=== PATIENT | female | born 1985 | race Caucasian/White ===

== ENCOUNTER 2018-07-03 04:00 | Inpatient (IN) | payer BC ==
[~2018-07-03] VITALS: Ht 185.4 cm; Wt 117.9 kg
[2018-07-03] MEDS ORDERED: fentaNYL CITRATE/PF 100 MCG/2 ML AMP ONE (04:37)
[2018-07-03] MEDS ORDERED: ROPIVACAINE 0.2% 100 ML ONE (04:37)
[2018-07-03] MEDS ORDERED: LR 1,000 ML IV ONE (04:48)
[2018-07-03] MEDS ORDERED: CEFAZOLIN 2 GM IVPB PREMIX 50 ML IV ONE (05:00)
[2018-07-03 06:44] LABS: BASOPHILS % (AUTO) 0.2 % (0.0-2.0); EOSINOPHILS # (AUTO) 0.2 K/uL (0.0-0.4); EOSINOPHILS % (AUTO) 1.5 % (0.0-4.0); HEMATOCRIT 35.6 % (36-48); HEMOGLOBIN 11.5 g/dL (12.0-16.0); LYMPHOCYTES # (AUTO) 2.5 K/uL (1.0-5.5); LYMPHOCYTES % (AUTO) 16.8 % (20.5-51.5); MEAN CORPUSCULAR HEMOGLOBIN 28 pg (27-31); MEAN CORPUSCULAR HGB CONC 32 % (32-36); MEAN CORPUSCULAR VOLUME 87 fL (79.0-98.0); MONOCYTES # (AUTO) 0.8 K/uL (0.0-1.0); MONOCYTES % (AUTO) 5.1 % (1.7-9.3); NEUTROPHILS # (AUTO) 11.6 K/uL (1.8-7.7); NEUTROPHILS % (AUTO) 76.4 % (40.0-70.0); PLATELET COUNT (AUTO) 280 K/uL (130-430); RED BLOOD CELL COUNT(AUTO) 4.09 MIL/uL (4.2-6.2); RED CELL DISTRIBUTION WIDTH 13.1 % (9.0-15.0); WHITE BLOOD COUNT (AUTO) 15.1 K/uL (4.8-10.8)
[2018-07-03] MEDS ORDERED: LR 1,000 ML IV SCH (09:03)
[2018-07-03] MEDS ORDERED: OXYTOCIN/0.9 % SODIUM CHLORIDE 1,000 ML IV ONE (09:03)
[2018-07-03] MEDS ORDERED: BISACODYL 10 MG/SUPPOSITORY RC PRN (09:15)
[2018-07-03] MEDS ORDERED: ACETAMINOPHEN 325 MG TABLET PO PRN (09:15)
[2018-07-03] MEDS ORDERED: ANUSOL 1 EA SUPP.RECT (PREPARATION H) RC PRN (09:15)
[2018-07-03] MEDS ORDERED: LANOLIN 7 GM OINT. TP PRN (09:15)
[2018-07-03] MEDS ORDERED: DIPH-TET-PERTUS Vaccine 0.5 ML VIAL (ADACEL) I.M. PRN (09:15)
[2018-07-03] MEDS ORDERED: DOCUSATE SODIUM 100 MG CAPSULE PO PRN (09:15)
[2018-07-03] MEDS ORDERED: MEASLES,MUMPS&RUBELLA VACC/PF 12500 UNIT/0.5 ML VIAL SUBQ PRN (09:15)
[2018-07-03] MEDS ORDERED: RHO(D) IMMUNE GLOBULIN/MALTOSE 1500 UNITS/1.3 ML (WINHRO) IM PRN (09:15)
[2018-07-03] MEDS ORDERED: SENNOSIDES/DOCUSATE SODIUM 1 TAB TABLET(SENOKOT-S) PO PRN (09:15)
[2018-07-03] MEDS ORDERED: LR 500 ML IV ONE (11:19)
[2018-07-03] MEDS ORDERED: NALOXONE HCL 0.4 MG/ML AMP (NARCAN) IVP PRN ×2 (11:30)
[2018-07-03] MEDS ORDERED: FENT2mCg/mL-ROPIVA0.2%/NS EPID 150 ML EP SCH (11:30)
[2018-07-03] MEDS ORDERED: DIPHENHYDRAMINE INJ 50 MG/ML VIAL IVP PRN (11:30)
[2018-07-03] MEDS ORDERED: KETOROLAC TROMETHAMINE 60 MG/2 ML VIAL IM PRN (11:30)
[2018-07-03] MEDS ORDERED: NALBUPHINE HCL 10 MG/ML AMP IVP PRN (11:30)
[2018-07-03] MEDS ORDERED: fentaNYL CITRATE/PF 100 MCG/2 ML AMP IVP PRN ×2 (11:30)
[2018-07-03] MEDS ORDERED: ONDANSETRON HCL 4 MG/2 ML VIAL IVP PRN (11:30)
[2018-07-03 12:31] VITALS: BP_SYST 133
[2018-07-03] MEDS: SIMETHICONE 80 MG TAB.CHEW PO PRN ×2 (14:34→17:58)
[2018-07-03] MEDS: KETOROLAC TROMETHAMINE 30 MG VIAL IVP SCH (17:56)
[2018-07-03] MEDS: CEFAZOLIN 1 GM IVPB PREMIX 50 ML IV SCH (20:15)
[2018-07-03] MEDS ORDERED: TEMAZEPAM 15 MG CAPSULE PO PRN (21:00)
[2018-07-04] MEDS: KETOROLAC TROMETHAMINE 30 MG VIAL IVP SCH ×2 (00:06→05:53)
[2018-07-04] MEDS: SIMETHICONE 80 MG TAB.CHEW PO PRN ×3 (00:06→16:19)
[2018-07-04] MEDS: CEFAZOLIN 1 GM IVPB PREMIX 50 ML IV SCH (02:35)
[2018-07-04 08:25] LABS: BASOPHILS % (AUTO) 0.2 % (0.0-2.0); EOSINOPHILS # (AUTO) 0.2 K/uL (0.0-0.4); EOSINOPHILS % (AUTO) 1.6 % (0.0-4.0); HEMATOCRIT 33.5 % (36-48); HEMOGLOBIN 11.3 g/dL (12.0-16.0); LYMPHOCYTES # (AUTO) 1.6 K/uL (1.0-5.5); LYMPHOCYTES % (AUTO) 11.8 % (20.5-51.5); MEAN CORPUSCULAR HEMOGLOBIN 29 pg (27-31); MEAN CORPUSCULAR HGB CONC 34 % (32-36); MEAN CORPUSCULAR VOLUME 86 fL (79.0-98.0); MONOCYTES # (AUTO) 0.5 K/uL (0.0-1.0); MONOCYTES % (AUTO) 3.5 % (1.7-9.3); NEUTROPHILS # (AUTO) 11.2 K/uL (1.8-7.7); NEUTROPHILS % (AUTO) 82.9 % (40.0-70.0); PLATELET COUNT (AUTO) 261 K/uL (130-430); RED BLOOD CELL COUNT(AUTO) 3.89 MIL/uL (4.2-6.2); RED CELL DISTRIBUTION WIDTH 13.5 % (9.0-15.0); WHITE BLOOD COUNT (AUTO) 13.5 K/uL (4.8-10.8)
[2018-07-04] MEDS: OXYCODONE/ACETAMINOPHEN 5-325 TABLET PO PRN ×4 (10:15→20:59)
[2018-07-04] MEDS ORDERED: IBUPROFEN 600 MG TABLET PO SCH ×2 (12:00→18:00)
[2018-07-04] MEDS: IBUPROFEN 600 MG TABLET PO SCH (18:00)
[2018-07-05] MEDS: IBUPROFEN 600 MG TABLET PO SCH (00:11)
[2018-07-05] MEDS: OXYCODONE/ACETAMINOPHEN 5-325 TABLET PO PRN ×3 (01:05→09:22)
[2018-07-05] MEDS ORDERED: CEFAZOLIN 2 GM IVPB PREMIX 50 ML IV ONE (08:21)
[2018-07-05] MEDS ORDERED: BUPIVACAINE /EPINEPHRINE/PF 0.25% 30 ML VIAL INJ ONE (08:21)
[2018-07-05] MEDS ORDERED: ONDANSETRON HCL 4 MG/2 ML VIAL IVP ONE (08:21)
[2018-07-05] MEDS ORDERED: MORPHINE SULFATE 10MG/10ML PF AMP EP ONE (08:21)
[2018-07-05] MEDS ORDERED: LR 1,000 ML IV.SOLN IV ONE (08:21)
[2018-07-05] MEDS ORDERED: METOCLOPRAMIDE HCL 10 MG/2 ML VIAL IVP ONE (08:21)
== END 2018-07-05 15:45 | disposition home or self-care (01) | DRG 788 ==
LOC: SPU 04:00
PROVIDERS: ADMIT Specialist; ATTEND Specialist
PROC: 10D00Z1 Extraction of Products of Conception, Low, Open Approach (ICD-10-PCS; principal; 2018-07-03 08:00)
DX: O98.52 Other viral diseases complicating childbirth (principal); B00.9 Herpesviral infection, unspecified; Z3A.38 38 weeks gestation of pregnancy; Z37.0 Single live birth
CPT/HCPCS: 36415; 85025; 86592; 86886; 86900; 86901; 87536; 94760; J0690; J1885; J2274; J2405; J2590; J2765; J2795; J3010; J3490; J7120